=== PATIENT | female | born 1960 | race Caucasian/White ===

== ENCOUNTER 2018-01-03 17:34 | Inpatient (IN) | payer MEDICAID ==
[~2018-01-03] VITALS: Ht 172.7 cm; Wt 90.7 kg
[2018-01-03 18:40] LABS: Basophils # (auto) 0.1 uL; Basophils % (auto) 0.6 % (0.0-2.0); Eosinophils # (auto) 0.1 uL; Eosinophils % (auto) 1.1 % (0.0-7.0); Hematocrit 39.1 % (36.0-46.0); Hemoglobin 13.1 g/dL (12.2-16.2); Lymphocytes # (auto) 2.6 uL; Lymphocytes % (auto) 20.7 % (10.0-50.0); Mean Corpuscular Hemoglobin 31.3 pg (28.0-32.0); Mean Corpuscular Hgb Conc. 33.4 g/dL (32.0-36.0); Mean Corpuscular Volume 93.6 fL (80.0-100.0); Monocytes # (auto) 0.7 uL; Monocytes % (auto) 5.6 % (0.0-12.0); Nucleated Red Blood Cells % 0.1 %; Platelet Count (auto) 342 10^3/uL (140-450); Red Blood Cells 4.18 10^6/uL (4.0-5.20); Red Cell Distribution Width 15.1 % (11.8-14.3); White Blood Cell 12.6 10^3/uL (4.4-10.8)
[2018-01-03 19:02] LABS: Albumin 4.1 g/dL (3.4-5.0); BUN/Creatinine Ratio 14.7; Potassium 4.1 mmol/L (3.5-5.1)
[2018-01-03 19:05] LABS: Bilirubin, Total 0.3 mg/dL (0.2-1.0); Total Protein 7.6 g/dL (6.4-8.2)
[2018-01-03] MEDS ORDERED: SODIUM CHLORIDE 0.9% 1,000 ML IVB ONE (20:41)
[2018-01-03 21:03] LABS: Magnesium 2.7 mg/dL (1.6-2.6)
[2018-01-03 21:18] LABS: INR 0.92 (0.9-1.15); Partial Thromboplastin Time 25.4 sec (23.78-33.04); Prothrombin Time 9.9 sec (9.27-12.13)
[2018-01-03] MEDS ORDERED: PANTOPRAZOLE 40 MG/10 ML VIAL IV ONE (21:30)
[2018-01-03] MEDS ORDERED: MORPHINE SULFATE 4 MG/ML SYR/VIAL IV ONE (21:45)
[2018-01-03] MEDS ORDERED: ONDANSETRON HCL 4 MG/2 ML VIAL IV ONE (21:45)
[2018-01-03 21:59] VITALS: BP 105/67
[2018-01-03] MEDS ORDERED: SODIUM CHLORIDE 0.9% 1,000 ML IV SCH (23:30)
[2018-01-03] MEDS ORDERED: HYDROcodone-ACET 5/325MG TAB PO PRN (23:30)
[2018-01-03] MEDS ORDERED: TEMAZEPAM 15 MG CAP PO PRN (23:30)
[2018-01-03] MEDS ORDERED: ONDANSETRON HCL 4 MG/2 ML VIAL IV PRN (23:30)
[2018-01-03] MEDS ORDERED: ACETAMINOPHEN 325 MG TAB PO PRN (23:30)
[2018-01-04] MEDS ORDERED: HCTZ 25 MG TAB PO SCH (10:00)
[2018-01-04] MEDS ORDERED: VENLAFAXINE HCL 37.5MG TABLET PO SCH (10:00)
[2018-01-04] MEDS ORDERED: LISINOPRIL 10 MG TAB PO SCH (10:00)
[2018-01-04] MEDS ORDERED: PANTOPRAZOLE 40 MG/10 ML VIAL IV SCH (10:00)
== END 2018-01-04 00:18 | disposition left against medical advice (07) | DRG 254 ==
LOC: ER 17:34 → OVERFLOW 17:35
PROVIDERS: ADMIT Nurse Practitioner; ATTEND Internal Medicine
DX: K92.1 Melena (principal); E87.8 Other disorders of electrolyte and fluid balance, not elsewhere classified; N18.3 Chronic kidney disease, stage 3 (moderate); I12.9 Hypertensive chronic kidney disease with stage 1 through stage 4 chronic kidney disease, or unspecified chronic kidney disease; E78.5 Hyperlipidemia, unspecified; F17.210 Nicotine dependence, cigarettes, uncomplicated; D86.9 Sarcoidosis, unspecified; J45.909 Unspecified asthma, uncomplicated; M51.37 Other intervertebral disc degeneration, lumbosacral region; F32.9 Major depressive disorder, single episode, unspecified; Z98.51 Tubal ligation status; Z79.899 Other long term (current) drug therapy; Z82.49 Family history of ischemic heart disease and other diseases of the circulatory system
CPT/HCPCS: 36415; 71045; 74176; 80053; 82150; 83690; 83735; 85025; 85610; 85730; 93005; 94761; 96361; 96374; 96375; C9113; J2405